=== PATIENT | female | born 1985 | race Caucasian/White ===

== ENCOUNTER 2022-09-29 00:17 | Emergency (ER) | payer SELFPAY ==
[~2022-09-29] VITALS: Ht 157.5 cm; Wt 56.1 kg
[2022-09-29 00:24] VITALS: BP 153/92
[2022-09-29] MEDS ORDERED: acetaminophen 325mg tablet PO ONE (02:35)
[2022-09-29] MEDS ORDERED: ibuprofen 200mg tablet PO ONE (02:35)
== END 2022-09-29 03:04 | disposition home or self-care (01) ==
LOC: ER 00:19
DX: S40.022A Contusion of left upper arm, initial encounter (principal); F17.200 Nicotine dependence, unspecified, uncomplicated; X58.XXXA Exposure to other specified factors, initial encounter; Y93.89 Activity, other specified; Y92.89 Other specified places as the place of occurrence of the external cause; Y99.8 Other external cause status
CPT/HCPCS: 93005; 99283